=== PATIENT | female | born 1990 | race Hispanic/Latino ===

== ENCOUNTER 2019-06-25 08:57 | Emergency (ER) | payer BC ==
[~2019-06-25] VITALS: Ht 162.6 cm; Wt 68.0 kg
[2019-06-25] MEDS ORDERED: KETOROLAC TROMETHAMINE 60 MG/2 ML VIAL IM ONE (09:30)
[2019-06-25] MEDS ORDERED: KETOROLAC TROMETHAMINE 60 MG/2 ML VIAL ONE (09:31)
--- NOTE | 2019-06-25 10:09 | NUR ---
DELAYED EMS ARRIVAL FINALLY HERE TO TRANSPORT PT
--- NOTE | 2019-06-25 10:16 | NUR ---
REPORT TO EMS FOR TRANSPORT
--- NOTE | 2019-06-25 11:33 | Diagnostic Imaging Report ---
EXAMINATION: CT of the lumbar spine HISTORY: Worsening severe low back pain since yesterday COMPARISON: None available TECHNIQUE: Multidetector helical axial images were obtained without contrast from L1 to S1. The images were reconstructed using bone and soft tissue algorithms and were viewed in axial, sagittal, and coronal planes. Dose modulation, iterative reconstruction, and/or weight based adjustment of the mA/kV was utilized to reduce the radiation dose to as low as reasonably achievable. FINDINGS: Transitional lumbosacral vertebra, based on the last rib-bearing vertebra there are 6 lumbar vertebra with rudimentary L6-S1 disc. Please note, that because the transitional vertebral anatomy nerve roots as numbered in this report may not correspond to standard dermatomal patterns. Alignment: Normal alignment and lordosis. Vertebral bodies: Normal height and density. Paraspinal muscles: Normal. Intervertebral disks: L1-L2: Normal. L2-L3: Normal. L3-L4: Normal. L4-L5: Normal L5-L6: Small approximately 5 mm AP diameter central disc protrusion mildly narrow the canal and flattens the ventral thecal sac without evidence of nerve root compression. L6-S1: Rudimentary disc. Sacroiliac joints: No abnormalities. Incidentally noted left lumbosacral pseudoarthroses. IMPRESSION: 1. Small central disc protrusion at L5-L6 with mild canal narrowing. 2. Transitional lumbosacral vertebral anatomy as detailed above and left lumbosacral pseudoarthroses. Signed by: Dr. Jimena Whitehead M.D. on 06/25/2019 11:29 AM
--- OUTSIDE RECORDS SUMMARY | 2019-06-30 12:21 | XMS REPORT ---
[facility] Address Unknown Phone Unavailable Care Team Providers [facility] Name Role Phone Brisa SUMNER Unavailable Unavailable Problems This patient has no known problems. Allergies, Adverse Reactions, Alerts This patient has no known allergies or adverse reactions. Medications This patient has no known medications. Encounters Start Date/Time End Date/Time Encounter Type Admission Type Attending Clinicians Care Facility Care Department Encounter ID 2019-03-10 09:09:00 2019-03-10 09:09:00 Outpatient [id number] Results Test Description Test Time Test Comments Text Results Atomic Results Result Comments CT LUMBAR SPINE WO 2019-06-25 11:19:00 [place] [id number] Patient Name: PAYTON SHELTON MR #: [id number] : 1990 Age/Sex: 29/F Req #: [id number] Adm Physician: Ordered by: YOLA SUMNER MD Report #: [id number] Location: [facility] Room/Bed: Procedure: [id number] CT/CT LUMBAR SPINE WO Exam Date: 06/25/19 Exam Time: 1040 REPORT STATUS: Signed EXAMINATION: CT of the lumbar spine HISTORY: Worsening severe low back pain since yesterday COMPARISON: None available TECHNIQUE: Multidetector helical axial images were obtained without contrast from L1 to S1. The images were reconstructed using bone and soft tissue algorithms and were viewed in axial, sagittal, and coronal planes. Dose modulation, iterative reconstruction, and/or weight based adjustment of the mA/kV was utilized to reduce the radiation dose to as low as reasonably achievable. FINDINGS: Transitional lumbosacral vertebra, based on the last rib-bearing vertebra there are 6 lumbar vertebra with rudimentary L6-S1 disc. Please note, that because the transitional vertebral anatomy nerve roots as numbered in this report may not correspond to standard dermatomal patterns. Alignment: Normal alignm ent and lordosis. Vertebral bodies: Normal height and density. Paraspinal muscles: Normal. Intervertebral disks: L1-L2: Normal. L2-L3: Normal. L3-L4: Normal. L4-L5: Normal L5-L6: Small approximately 5 mm AP diameter central disc protrusion mildly narrow the canal and flattens the ventral thecal sac without evidence of nerve root compression. L6-S1: Rudimentary disc. Sacroiliac joints: No abnormalities. Incidentally noted left lumbosacral pseudoarthroses. IMPRESSION: 1. Small central disc protrusion at L5-L6 with mild canal autumn rowing. 2. Transitional lumbosacral vertebral anatomy as detailed above and left lumbosacral pseudoarthroses. Signed by: Dr. Cynthia Whitehead M.D. on 06/25/2019 11:29 AM Dictated By: CYNTHIA WHITEHEAD MD 28 Transcribed By: GABRIELLA on 06/25/191128 COPY TO: YOLA SUMNER MD
== END 2019-06-25 11:54 | disposition home or self-care (01) ==
LOC: FSED 08:57
DX: M51.26 Other intervertebral disc displacement, lumbar region (principal)
CPT/HCPCS: 72131; 81003; 81025; 99284; J1885